=== PATIENT | male | born 1975 | race Two or more races ===

== ENCOUNTER 2024-07-20 18:45 | Emergency (ER) | payer OTHER ==
[~2024-07-20] VITALS: Ht 175.3 cm; Wt 77.1 kg
[2024-07-20] MEDS ORDERED: COZAAR100 MG PO (19:44)
[2024-07-20] MEDS ORDERED: TETANUS & DIPHTHERIA TOX,ADULT 0.5 ML VIAL IM ONE (20:30)
[2024-07-20] MEDS ORDERED: KETOROLAC TROMETHAMINE 60 MG VIAL IM ONE (20:30)
[2024-07-20] MEDS ORDERED: CEFTRIAXONE SODIUM 1,000 MG VIAL IM ONE (20:30)
[2024-07-20] MEDS ORDERED: LIDOCAINE HCL 1% 10ML VIAL PERCUT ONE (20:30)
[2024-07-20] MEDS ORDERED: PEPCID AC20 MG PO (21:12)
[2024-07-20] MEDS ORDERED: CEPHALEXIN750 MG PO (21:12)
== END 2024-07-20 21:24 | disposition home or self-care (01) ==
LOC: ER 18:47
DX: S61.213A Laceration without foreign body of left middle finger without damage to nail, initial encounter (principal); W26.0XXA Contact with knife, initial encounter; Y93.89 Activity, other specified; Y92.010 Kitchen of single-family (private) house as the place of occurrence of the external cause; Y99.9 Unspecified external cause status; I10 Essential (primary) hypertension